=== PATIENT | male | born 1950 | race African-American/Black ===

== ENCOUNTER 2016-04-29 15:28 | Emergency (ER) | payer MEDICARE ==
--- NOTE | 2016-04-29 16:31 | ERNOTE ---
Back Pain ER HPI Date of Service: 04/29/16 Time Seen by Provider: 04/29/16 16:21 Immunizations: IMMUNIZATION HX History of Influenza Vaccine No Hx Pneumococcal Vaccination No Allergies/Adverse Reactions: Allergies No Known Allergies Allergy (Unverified 04/29/16 15:37) Home Medications: HOME MEDICATIONS Naproxen [Naprosyn] 500 mg PO BID PRN #60 tab 04/29/16 [Last Taken Unknown] Narrative: Pt. comes in with c/o R flank pain that started after he fell off of three stairs a week ago. Pt. states that movement worsens the pain and nothing alleviates it. Pt. denies any prehospital treatment or associated symptoms. Review of Systems - Review of Systems Constitutional: Present: no symptoms reported. Absent: recent illness, fever, chills, weakness, fatigue, malaise EYE: Present: no symptoms reported ENT: Present: no symptoms reported Respiratory: Present: no symptoms reported. Absent: shortness of breath, cough , wheezing Cardiology: Present: no symptoms reported. Absent: chest pain, palpitations, edema Gastrointestinal/Abdominal: Present: no symptoms reported. Absent: nausea, vomiting, diarrhea Genitourinary: Present: pain - R flank Musculoskeletal: Present: back pain - R flnak Skin: Present: no symptoms reported Neurological: Present: no symptoms reported. Absent: headache, dizziness/light- headedness, numbness, tingling All Other Systems: All systems neg except as marked - Patient's Past Medical History Patient History - Medical: No pertinent hx Patient History - Cardiac/Respiratory: No pertinent hx Patient History - Cancer: No Hx of Cancer Patient History - Surgical Procedures: Appendectomy Patient History - Other: None - Social History Living Situations: home Smoking Status: Current every day smoker - Immunizations Hx Pneumococcal Vaccination: No History of Influenza Vaccine: No Physical Exam - Physical Exam General Appearance: Present: wd/wn, alert, no apparent distress Eye Exam: Normal inspection: bilateral, PERRL: bilateral, EOMI: bilateral Ears, Nose, Throat: Present: normal ENT inspection, hearing grossly normal, normal pharynx Neck: Present: normal inspection, nontender. 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 Absent: pallor, skin rash ED Progress - Date and Time Seen: Date and Time: 04/29/16 16:40 Feel that xray findings may not be conclusive as pt. tenderness is not over 10th rib. 04/29/16 19:[address] stone redemonstrates 10th rib fracture must assume pt. pain is musculoskelatal. - Results and Orders Patient's Lab Results:: I have reviewed the patient's lab results. - Vital Signs Patient's Vital Signs:: I have reviewed the patient's vital signs. Vital Signs: Vital Signs 04/29/16 15:32 Temperature 37.1 C Pulse Rate 104 H Respiratory 12 Rate Blood Pressure 160/109 O2 Sat by Pulse 98 Oximetry - X-Ray X-Ray #1 X-Ray: ribs Interpretation: Reviewed by me X-ray Comments: questionable 10th rib lucency - CT/Ultrasound CT/Ultrasound Narrative: CT stone negative for renal stone but again demonstrates R 10th rib fracture. - Progress/Reassessment Chief Complaint: Back Pain Departure Clinical Impression: Contusion of flank or groin Qualifiers: Encounter type: initial encounter Qualified Code(s): S30.1XXA - Contusion of abdominal wall, initial encounter Rib fracture Qualifiers: Encounter type: initial encounter Fracture type: closed Laterality: right - Departure Disposition: Home self-care Condition: Good Instructions: Contusion, [id number], Rib Fracture Additional Instructions: Please follow up with primary provider in 2-3 days Prescriptions: Naproxen [Naprosyn] 500 mg PO BID PRN #60 tab PRN Reason: Pain
[2016-04-29] MEDS ORDERED: KETOROLAC TROMETHAMINE 60 MG/2 ML VIAL IM ONE ×2 (16:35→16:40)
[2016-04-29 16:47] LABS: Hemoglobin 18.9 gm/dL (13.5-18.0); Mean Corpuscular Hemoglobin 30.9 pg (27-31); Mean Corpuscular Hgb Conc 34.4 g/dl (32-36); Mean Platelet Volume 10.4 fl (6.0-9.5); Neutrophil # 6.9 K/mm3 (1.3-6.0); Neutrophil % 75.9 % (42-75.0); Platelet Count 182 K/mm3 (150-450); Red Blood Count 6.11 M/mm3 (4.7-6.0); Red Cell Distribution Width 13.3 % (11.5-14.0); White Blood Count 9.1 K/mm3 (4.0-10.5)
[2016-04-29 16:58] LABS: Urine Bilirubin 3 mg/dl (NEGATIVE); Urine Blood Negative /ul (NEGATIVE); Urine Ketone 50 mg/dL (NEGATIVE); Urine Nitrite Negative (NEGATIVE); Urine Protein Negative (NEGATIVE); Urine Urobilinogen Normal (NORMAL); Urine pH 6.5 pH (5.0-7.0)
[2016-04-29 17:11] LABS: Urine Appearance Clear; Urine Bacteria TRACE; Urine Color Dark Yellow; Urine Fine Granular Cast 0-5 /LPF; Urine Mucus Many - 3+; Urine Other Crystal Few - 1+ /hpf; Urine RBC None Seen /hpf (0-5); Urine WBC 0-5 /hpf (0-5)
[2016-04-29 17:18] LABS: Albumin * 4.1 gm/dl (3.4-5.0); BUN/Creatinine Ratio 7.7 (9.0-21.6); Bilirubin, Total 2.9 mg/dL (0.0-1.1); Calcium * 9.4 mg/dL (7.9-10.9); Carbon Dioxide 23.2 mmol/L (24-32.6); Potassium 4.2 mmol/L (3.4-4.6); Total Protein 8.5 gm/dL (6.2-8.2)
[2016-04-29] MEDS ORDERED: NORMAL SALINE 1,000 ML IV ONE (18:13)
[2016-04-29 20:17] VITALS: BP 145/79
== END 2016-04-29 20:07 | disposition home or self-care (01) ==
LOC: ER 15:28
DX: S30.1XXA Contusion of abdominal wall, initial encounter (principal); W10.9XXA Fall (on) (from) unspecified stairs and steps, initial encounter; Y92.009 Unspecified place in unspecified non-institutional (private) residence as the place of occurrence of the external cause; S22.31XA Fracture of one rib, right side, initial encounter for closed fracture